=== PATIENT | male | born 1955 | race Caucasian/White ===

== ENCOUNTER 2018-02-05 14:20 | Outpatient (CLI) ==
--- NOTE | 2018-02-05 16:15 | DI ---
EXAM: Two views of the chest. History: Chest pain, short of breath Findings: Heart size is normal. No focal consolidation. No appreciable pleural fluid and no pneumo thorax. No acute osseous abnormalities. Impression: No acute cardiopulmonary process
--- NOTE | 2018-02-05 16:17 | DI ---
EXAM: Six views of the cervical spine. History: Cervical neck pain. Findings: No acute fracture or subluxation of the cervical spine. No prevertebral soft tissue swell ing. Predental space is not widened. Mild disc space narrowing at C5-6 and C6-7 with small osteophy tonya. The oblique images are not well profiled. Impression: 1. No acute osseous abnormality of the cervical spine. 2. Mild degenerative disc disease at C5-6 and C6-7.
== END 2018-02-05 14:21 | disposition home or self-care (01) ==
LOC: RAD 14:20
PROVIDERS: ATTEND Internal Medicine
DX: R06.02 Shortness of breath (principal); R07.9 Chest pain, unspecified; M54.2 Cervicalgia